=== PATIENT | male | born 1985 | race American Indian/Alaskan Native ===

== ENCOUNTER 2016-09-22 18:34 | Emergency (ER) | payer SELFPAY ==
[2016-09-22 18:55] VITALS: BP 136/89
--- NOTE | 2016-09-22 19:42 | Emergency Department Report ---
Entered by NINFA RAHMAN, acting as scribe for RYAN GRUBER PA. Chief Complaint: Urogenital-Male Stated Complaint: POSS STD Time Seen by Provider: 09/22/16 19:26 - HPI History of Present Illness: Patient presents to the ED wanting to get checked for herpes. Patient states he got a call from his sexual partner telling him to get checked for herpes. Denies exposure or unprotected sex. Denies urgency, frequency, penile discharge , dysuria, rash, lesions, fever, chills, nausea, and vomiting. - ROS Review of Systems: All other systems are negative unless stated in HPI above. - Exam Vital Signs: Vital Signs 09/22/16 18:51 Temperature 99.1 F Pulse Rate 72 Respiratory 18 Rate Blood Pressure 136/89 O2 Sat by Pulse 100 Oximetry Physical Exam: General: 31 year old female in no acute distress. Well-developed, well- nourished. CV: Regular rate and rhythm. No murmurs rubs or gallops. Lungs: Clear to auscultation bilaterally. Abdomen: No tenderness to palpation. Nondistended. No guarding or rebound tenderness. MSE screening note: Focused history and physical exam performed. Due to findings the following was ordered: ED Medical Decision Making - Medical Decision Making Patient seen by provider in triage area. Patient will give a urine sample for a UA. ED Disposition for MSE Disposition: MEDICAL SCREENING EXAM-LEFT Condition: Stable Referrals: PRIMARY CARE,MD [Primary Care Provider] - 3-5 Days This documentation as recorded by the scribe,NINFA RAHMAN,accurately reflects the service I personally performed and the decisions made by me,RYAN GRUBER PA.
== END 2016-09-22 19:47 | disposition left against medical advice (07) ==
LOC: ED 18:34
DX: Z11.3 Encounter for screening for infections with a predominantly sexual mode of transmission (principal)
CPT/HCPCS: 99282